=== PATIENT | female | born 1945 | race Caucasian/White ===

== ENCOUNTER 2016-03-19 15:23 | Emergency (ER) | payer MEDICARE, OTHER ==
[2016-03-19] MEDS ORDERED: Sodium Chloride 0.9% 1000 ML 1,000 ML IV SCH (16:00)
[2016-03-19] MEDS ORDERED: Catapres 0.1 MG PO ONE (16:00)
[2016-03-19] MEDS ORDERED: Sodium Chloride 0.9% 1000 ML 1,000 ML ONE (16:05)
[2016-03-19] MEDS ORDERED: Catapres 0.1 MG ONE (16:05)
--- NOTE | 2016-03-19 16:08 | ERPHSYRPT ---
- History of Present Illness Time Seen by Provider: 03/19/16 15:50 Source: patient Exam Limitations: clinical condition Patient Subjective Stated Complaint: PT REPORTS BP OF 210-REPORTS HEADACHE- DENIES NUMBNESS OR TINLGING-REPORTS INTERMITTANT TWINGES IS HER BACK Triage Nursing Assessment: PT PINK WARM ET DRY-A & O X 3-PUPILS REACTIVE-MOVING ALL EXTREMITIES WITH NO DIFFICULTY Physician History: PATIENT WITH HISTORY OF HYPERTENSION, STATES HER BLOOD PRESSURE HAS BEEN ELEVATED TO 200/104 THIS AM, HAS HAD FACIAL PAIN, PRESSURE, NASAL DRAINAGE LAST WEEK, PERSISTENT POST NASAL DRIP. HAS A DULL HEADACHE TODAY. DENIES BLURRED VISION, SLURRED SPEECH, DYSPNEA, COUGH, Timing/Duration: day(s) Activities at Onset: none Severity of Pain-Max: mild Severity of Pain-Current: mild Nitro Today/Relief: no nitro taken today Aspirin Treatment Today: 81 mg x 1 (FOR HEADACHE) Prior Chest Pain/Cardiac Workup: no prior chest pain Allergies/Adverse Reactions: No Known Drug Allergies Allergy (Unverified 03/19/16 15:29) Home Medications: Hydrochlorothiazide 12.5 mg PO DAILY 03/19/16 [History] Insulin Glargine,Hum.rec.anlog [Lantus] 60 unit SQ DAILY 03/19/16 [History] Hx Tetanus, Diphtheria Vaccination/Date Given: No Hx Influenza Vaccination/Date Given: No Hx Pneumococcal Vaccination/Date Given: No Immunizations Up to Date: Yes - Past Medical History Pertinent Past Medical History: Yes Cardiac History: Hypertension Endocrine Medical History: Diabetes Type II - Past Surgical History Past Surgical History: Yes Gastrointestinal: Cholecystectomy - Social History Smoking Status: Never smoker Exposure to second hand smoke: No Drug Use: none Patient Lives Alone: No - Nursing Vital Signs Temperature: 98.1 F Temperature Source: Oral Pulse Rate: 100 Respiratory Rate: 22 Blood Pressure: 123/79 Pain Intensity: 7 - Physical Exam General Appearance: no apparent distress, alert Eye Exam: PERRL/EOMI, eyes nml inspection Ears, Nose, Throat Exam: normal ENT inspection, moist mucous membranes, other ( THERE IS NO PERCUSSION TENDERNESS OVER SINUSES) Neck Exam: normal inspection, non-tender, supple Respiratory Exam: normal breath sounds, lungs clear, No respiratory distress Cardiovascular Exam: regular rate/rhythm, normal heart sounds, No edema Gastrointestinal/Abdomen Exam: soft, No tenderness, No mass Back Exam: normal inspection, No CVA tenderness, No vertebral tenderness Extremity Exam: normal inspection, normal range of motion Neurologic Exam: alert, oriented x 3, cooperative, normal mood/affect, nml cerebellar function, sensation nml, No motor deficits Skin Exam: normal color, warm, dry Lymphatic Exam: No adenopathy SpO2 Interpretation: normal SpO2: 97 Oxygen Delivery: Room Air - Course EKG Interpreted by Me: RATE, Sinus Rhythm, NORMAL AXIS - CT Exams Head CT Interpretation: Tele-radiologist Report (THERE IS SEVERE MUCOSAL THICKENING WITHIN THE LEFT MAXILLARY AND RIGHT POSTERIOR ETHMOID AIR CELLS,), No/ Intracranial Hemorrhag Ordered Tests: Active Orders 24 hr Category Date Time Status Vat Packer STAT Care 03/19/16 16:00 Active EKG-ER Only STAT Care 03/19/16 15:59 Active IV Insertion STAT Care 03/19/16 16:00 Active HEAD WITHOUT CONTRAST [CT] Stat Exams 03/19/16 17:42 Taken BMP Stat Lab 03/19/16 16:14 Completed CBC W DIFF Stat Lab 03/19/16 16:14 Completed Medication Summary Discontinued Medications Generic Name Dose Route Start Last Admin Trade Name Freq PRN Reason Stop Dose Admin Clonidine 0.1 mg 03/19/16 16:00 03/19/16 16:14 Catapres 0.1 Mg PO 03/19/16 16:01 0.1 mg STAT ONE Administration Clonidine Confirm 03/19/16 16:05 Catapres 0.1 Mg Administered 03/19/16 16:06 Dose 0.1 mg .ROUTE .STK-MED ONE Sodium Chloride 1,000 mls @ 50 mls/hr 03/19/16 16:00 03/19/16 16:14 Sodium Chloride 0.9% 1000 Ml IV 04/18/16 15:59 50 mls/hr .Q20H CLARENCE Administration Sodium Chloride Confirm 03/19/16 16:05 Sodium Chloride 0.9% 1000 Ml Administered 03/19/16 16:06 Dose 1,000 mls @ ud .ROUTE .STK-MED ONE Ceftriaxone Sodium/Dextrose 50 mls @ 100 mls/hr 03/19/16 18:53 03/19/16 18:59 Rocephin 1 Gm-D5w 50 Ml Bag IV 03/19/16 19:22 100 mls/hr STAT ONE Administration Ceftriaxone Sodium/Dextrose Confirm 03/19/16 18:57 Rocephin 1 Gm-D5w 50 Ml Bag Administered 03/19/16 18:58 Dose 50 mls @ ud IV .STK-MED ONE Lab/Rad Data: Laboratory Result Diagrams 03/19/16 16:14 03/19/16 16:14 Laboratory Results 03/19/16 03/19/16 Range/Units 16:14 16:14 WBC 8.6 (4.0-10.5) K/mm3 RBC 4.72 (4.1-5.4) M/mm3 Hgb 14.5 (12.0-16.0) gm/dl Hct 43.0 (35-47) % MCV 91.1 (78-100) fl MCH 30.7 (26-32) pg MCHC 33.7 (32-36) g/dl RDW 12.8 (11.5-14.0) % Plt Count 222 (150-450) K/mm3 MPV 10.2 H (6-9.5) fl Gran % 51.8 (36.0-66.0) % Lymphocytes % 37.9 (24.0-44.0) % Monocytes % 7.8 (0.0-12.0) % Eosinophils % 2.2 (0.00-5.0) % Basophils % 0.3 (0.0-0.4) % Basophils # 0.03 (0-0.4) Sodium 141 (136-145) mEq/L Potassium 4.0 (3.5-5.1) mEq/L Chloride 104 (98-107) mEq/L Carbon Dioxide 27.6 (21-32) mEq/L Anion Gap 13.8 (5-15) MEQ/L BUN 16 (9-20) mg/dL Creatinine 0.77 (0.55-1.30) mg/dl Estimated GFR > 60 ML/MIN Glucose 88 (70-110) MG/DL Calcium 9.5 (8.5-10.1) mg/dL - Progress Progress: re-examined Progress Note: 03/19/16 16:09 PATIENT ADMINISTERED CATAPRES 0.1MG ORALLY 03/19/16 18:58 PATIENT ADMINISTERED IV NORMAL SALINE 100ML/HR, ROCEPHIN 1GM IVPB 03/19/16 18:59- BP IMPROVED TO 152/74 Blood Culture(s) Obtained: No Antibiotics given: Yes Counseled pt/family regarding: lab results, diagnosis, need for follow-up, rad results - Departure Time of Disposition: 19:22 Departure Disposition: Home Clinical Impression: ACUTE MAXILLARY/ETHMOID SINUSITIS, HYPERTENSION Condition: Stable Critical Care Time: No Referrals: BALDEV BRIGHT [Primary Care Provider] - Additional Instructions: ANTIBIOTIC CEFTIN 250MG TWICE DAILY FOR 10 DAYS. LISINOPRIL 5MG BEGIN DOSE TONIGHT AND THEN DAILY EACH MORNING. CHECK BLOOD PRESSURE AT HOME 2-3 TIMES DAILY. CONSULT YOUR FAMILY PHYSICIAN FOR EVALUATION IN 1 WEEK. Prescriptions: Cefuroxime Axetil [Cefuroxime] 250 mg PO BID #20 tablet Lisinopril 5 mg [Zestril 5 MG] 5 mg PO DAILY #30 tablet
[2016-03-19 16:22] LABS: BASOPHIL % 0.3 % (0.0-0.4); Eosinophil % 2.2 % (0.00-5.0); Granulocytes % 51.8 % (36.0-66.0); Lymphocytes % 37.9 % (24.0-44.0); Mean Cell Volume 91.1 fl (78-100); Mean Corpuscular Hemoglobin 30.7 pg (26-32); Mean Platelet Volume 10.2 fl (6-9.5); Monocytes % 7.8 % (0.0-12.0); Platelet Count 222 K/mm3 (150-450); Red Blood Count 4.72 M/mm3 (4.1-5.4); Red Cell Distribution Width 12.8 % (11.5-14.0); White Blood Count 8.6 K/mm3 (4.0-10.5)
[2016-03-19 17:08] LABS: ANION GAP 13.8 MEQ/L (5-15); BLOOD UREA NITROGEN 16 mg/dL (9-20); CHLORIDE 104 mEq/L (98-107); Carbon Dioxide 27.6 mEq/L (21-32); Glucose 88 MG/DL (70-110); SODIUM 141 mEq/L (136-145)
[2016-03-19] MEDS ORDERED: ROCEPHIN 1 Gm-D5w 50 ml Bag** 50 ML IV ONE ×2 (18:53→18:57)
[2016-03-19 19:02] VITALS: BP 123/79; PULSE 100; O2SAT 97
[2016-03-19] MEDS ORDERED: Zestril 5 MG PO STA (19:25)
--- NOTE | 2016-03-20 08:38 | XRAY ---
Indication: Headache. Elevated blood pressure. Multiple contiguous axial images obtained through the head without contrast. Comparison: None Age-appropriate global atrophy and minimal periventricular degenerative micro-ischemia. No acute intracranial hemorrhage, abnormal extra-axial fluid collection, or mass effect. Fourth ventricle is midline without hydrocephalus. Petersen-white matter differentiation maintained. Bony calvarium intact. There is fluid leveling in the visualized left maxillary sinus and mild mucosal thickening of the right ethmoid sinus. Mastoid air cells are pneumatized and clear. Impression: Nonacute senile brain. Incidental paranasal sinus disease. Comment: Preliminary interpretation was made by [facility]. No discrepancy. CT DI is 68.81
== END 2016-03-19 19:15 | disposition home or self-care (01) ==
LOC: ED 15:23
DX: J01.00 Acute maxillary sinusitis, unspecified (principal); J01.20 Acute ethmoidal sinusitis, unspecified; I10 Essential (primary) hypertension; R51 Headache; Z79.899 Other long term (current) drug therapy
CPT/HCPCS: 36000; 36415; 70450; 80048; 85025; 93005; 93041; 96360; 96361; 96365; 99283; J0696